=== PATIENT | female | born 1945 | race Caucasian/White ===

== ENCOUNTER → 2020-07-05 15:10 | Outpatient (CLI) | payer MEDICARE, SELFPAY ==
--- NOTE | ~2020-07-05 | MR_ITS ---
EXAMINATION: MR lumbar spine wo con DATE: 07/05/2020 16:07 INDICATION: Low back pain. Right leg pain. TECHNIQUE: Magnetic resonance imaging (MRI) of the lumbar spine was performed without intravenous con trast. Sequences included sagittal T2-weighted FSE, sagittal T2-weighted FS FSE, sagittal T1-weighted FSE, and axial T2-weighted FSE. COMPARISON: None FINDINGS: There is 10 degrees dextroscoliosis of lumbar spine. Vertebral body heights are normal. The re is mildly decreased disc height from L2-L3 through L4-L5 and severely decreased disc height at L5- S1. The distal spinal cord signal intensity is normal. The conus medullaris is at L1. There is a 17 m m cyst in right kidney. The following disc levels are specifically discussed: L1-L2: The disc is bulging. There is mild bilateral facet joint osteoarthritis. There is no neural fo raminal stenosis. There is mild central canal stenosis. L2-L3: The disc is bulging and has an annular fissure. There is moderate bilateral facet joint osteoa rthritis. There is mild bilateral neural foraminal stenosis. There is mild central canal stenosis. L3-L4: The disc is bulging with superimposed left central extrusion. There is severe right and modera te left facet joint osteoarthritis. There is mild bilateral neural foraminal stenosis. There is mild central canal stenosis. L4-L5: The disc is bulging and has an annular fissure. There is moderate bilateral facet joint osteoa rthritis. There is moderate right and mild left neural foraminal stenosis. There is mild central xiomara l stenosis. L5-S1: The disc is bulging and has an annular fissure. There is moderate bilateral facet joint osteoa rthritis. There is mild bilateral neural foraminal stenosis. There is mild central canal stenosis. IMPRESSION: 1. Severe lumbar spondylosis. 2. Lumbar dextroscoliosis. Reviewed, dictated and finalized at location A.
== END ==
PROVIDERS: PCP Internal Medicine; Visit Provider Internal Medicine
DX: M47.896 Other spondylosis, lumbar region (principal)
CPT/HCPCS: 72148

== ENCOUNTER 2020-07-26 09:52 | Outpatient (CLI) | payer MEDICARE, SELFPAY ==
--- NOTE | 2020-07-26 09:56 | ECG_ITS ---
Measurements Intervals [place] Rate: 69 P: 57 KS: 158 QRS: 17 QRSD: 94 T: 80 QT: 395 QTc: 424 Interpretive Statements SINUS RHYTHM VOLTAGE CRITERIA FOR LVH CANNOT RULE OUT SEPTAL INFARCT, AGE INDETERMINATE BASELINE ARTIFACT- I, III, AVR, AVL, AVF ABNORMAL ECG Electronically Signed On 07-26-2020 10:42:34 CDT by Gregorio King D.O.
[2020-07-26 10:28] LABS: Basophils Absolute Auto 0.1 K/mm3 (0.0-0.1); Basophils Percent Auto 0.6 % (0.2-1.2); Eosinophils Absolute Auto 0.1 K/mm3 (0-0.3); Eosinophils Percent Auto 1.7 % (0-4.4); Hematocrit 42.6 % (37.0-47.0); Hemoglobin 14.3 g/dL (12.0-15.0); Immature Granulocyte Absolute 0.03 K/mm3 (0.00-0.031); Immature Granulocyte Percent A 0.4 % (0-0.5); Lymphocytes Absolute Auto 1.69 K/mm3 (0.9-3.2); Lymphocytes Percent Auto 20.7 % (18.3-44.2); Mean Corpuscular HGB Conc 33.6 g/dl (32-36); Mean Corpuscular Hemoglobin 30.9 pg (26-34); Monocytes Absolute Auto 0.6 K/mm3 (0.1-0.6); Monocytes Percent Auto 7.1 % (2.6-8.5); Neutrophils Absolute Auto 5.7 K/mm3 (1.3-6.7); Neutrophils Percent Auto 69.5 % (45.5-73.1); Platelet Count Result 260 k/mm3 (150-375); Red Blood Count 4.63 M/mm3 (4.2-5.4); White Blood Count 8.2 K/mm3 (4.5-10.0)
[2020-07-26 10:39] LABS: Prothrombin Time 12.5 Seconds (11.1-14.7)
[2020-07-26 10:40] LABS: Partial Thromboplastin Time 30.8 SECONDS (22.3-36.8)
[2020-07-26 10:45] LABS: Alanine Aminotransferase 13 U/L (4-35); Albumin Level 4.4 g/dL (3.5-5.1); Alkaline Phosphatase 88 U/L (38-126); Anion Gap 11 mmol/L (8-16); Aspartate Amino Transferase 22 U/L (14-36); Bilirubin,Total 0.4 mg/dL (0.2-1.3); Blood Urea Nitrogen 19 mg/dL (7-17); Calcium 9.4 mg/dL (8.4-10.2); Carbon Dioxide 22 mmol/L (22-30); Chloride 107 mmol/L (98-107); Estimated Glomerular Filt Rate > 60; Glucose 103 mg/dL (65-105); Potassium 4.7 mmol/L (3.4-5.0); Sodium 140 mmol/L (137-145)
== END 2020-07-26 09:53 | disposition home or self-care (01) ==
LOC: ANHSURGERY 09:56
PROVIDERS: PCP Internal Medicine; Visit Provider Urology
DX: Z01.818 Encounter for other preprocedural examination (principal); N99.3 Prolapse of vaginal vault after hysterectomy; I10 Essential (primary) hypertension; R94.31 Abnormal electrocardiogram [ECG] [EKG]
CPT/HCPCS: 36415; 80053; 85025; 85610; 85730; 86850; 86900; 86901; 87086; 87088; 93005

== ENCOUNTER 2020-07-29 02:33 | Outpatient (CLI) | payer MEDICARE, SELFPAY ==
[2020-07-29 23:12] LABS: SARS-CoV-2 RNA PCR Negative
== END 2020-07-29 02:34 | disposition home or self-care (01) ==
LOC: ANHCOVIDDT 02:33
PROVIDERS: PCP Internal Medicine; Visit Provider Urology
DX: Z01.812 Encounter for preprocedural laboratory examination (principal); Z20.828 Contact with and (suspected) exposure to other viral communicable diseases
CPT/HCPCS: 87635; C9803; U0003

== ENCOUNTER 2020-08-01 00:47 | Day surgery (SDC) | payer MEDICARE, SELFPAY ==
--- NOTE | 2020-07-23 14:14 | PM.IMHP ---
H&P: HPI History of Present Illness Date/Time: 07/23/20 14:14 Chief complaint: vaginal vault prolapse Narrative: Navya Caputo is a 74 year old female up with vaginal wall prolapse without stress incontinence Review of Systems Review of Systems: All systems reviewed & are unremarkable except as noted in HPI and below Meds Home Medications and Allergies Allergies Allergy/AdvReac Type Severity Reaction Status Date / Time No Known Allergies Allergy Unverified 05/27/17 09:25 Exam Const: General: no acute distress HENMT: Mouth: Yes moist mucous membranes Eyes: EOM: EOMs intact bilaterally Neck: Neck: no JVD Resp: Effort & Inspection: normal respiratory effort GI: GI Palp: Yes Soft to palpation : Other: apex at +4 Skin: General skin exam: no rashes or lesions noted Neuro: Speech: normal speech Extrem: General: normal to inspection Psych: Mental Status: mental status grossly normal Assessment and Plan Assessment and plan (1) Prolapse of vaginal vault after hysterectomy: Code(s): N99.3 - Prolapse of vaginal vault after hysterectomy Status: Acute Assessment and Plan: colpocleisis
[2020-07-25 09:37] VITALS: BMI 23.7
--- NOTE | 2020-08-01 10:01 | WPDHPUPDATE1 ---
History and Physical Update Update Date/Time: 08/01/20 10:01 History and Physical has been reviewed, including an updated exam of the patient. There are NO changes in the patient's condition. Risks, benefits, and alternatives have been discussed and questions answered. Patient agrees to proceed with procedure.
[2020-08-01 10:09] VITALS: BP 149/89; PULSE 82; RESP 18; TEMP 36.7; O2SAT 95
[2020-08-01] MEDS: LACTATED RINGERS 1,000 ML 30 ML IV CONT (10:30)
--- NOTE | 2020-08-01 10:54 | WPDANESEPP ---
Anes - Eval Pre Procedure Procedure: Operation Date: 08/01/20 12:00 Proposed Procedures p Colpocleisis - Lito Orona MD s Possible Urethral Sling - Lito Orona MD Date/Time: 08/01/20 10:54 Pre Op Diagnosis: vaginal vault prolapse Patient Data Age: 75 Gender: F Height: 1.68 m Weight: 66.7 kg Allergies Allergy/AdvReac Type Severity Reaction Status Date / Time No Known Allergies Allergy Unverified 07/25/20 09:28 Home Medications Medication Instructions Recorded Confirmed Type amlodipine 5 mg PO QAM 07/25/20 07/25/20 History lorazepam 0.5 mg PO PRN PRN 07/25/20 07/25/20 History magnesium 400 mg PO DAILY 07/25/20 07/25/20 History montelukast 10 mg PO QAM 07/25/20 07/25/20 History pantoprazole 40 mg PO QAM 07/25/20 07/25/20 History Patient hx anesthesia problems: none Family hx anesthesia problems: none [facility] Past Medical History Medical History (Updated 08/01/20 @ 10:54 by Jada Cool CRNA) Anxiety Asthma GERD (gastroesophageal reflux disease) HTN (hypertension) Social History Social History Years smoked: 20 Smoking status: Former smoker Tobacco type: cigarettes Smoking end date: 10/21/69 Alcohol intake: current Drinks per week: 1 Living arrangements: alone Spiritual care concerns: No Exam Day of Procedure 08/01/20 10:54
--- NOTE | 2020-08-01 11:19 | WPDANESEPPF ---
Anes - Initial Pre Proc Eval Procedure: Operation Date: 08/01/20 12:00 Proposed Procedures p Colpocleisis - Lito Orona MD s Possible Urethral Sling - Lito Orona MD Date/Time: 08/01/20 11:19 Surgeon: Lito Orona MD Pre Op Diagnosis: vaginal vault prolapse Patient Data Age: 75 Gender: F Height: 5 ft 6 in Weight: 66.7 kg Allergies Allergy/AdvReac Type Severity Reaction Status Date / Time No Known Allergies Allergy Unverified 07/25/20 09:28 Home Medications Medication Instructions Recorded Confirmed Type amlodipine 5 mg PO QAM 07/25/20 07/25/20 History lorazepam 0.5 mg PO PRN PRN 07/25/20 07/25/20 History magnesium 400 mg PO DAILY 07/25/20 07/25/20 History montelukast 10 mg PO QAM 07/25/20 07/25/20 History pantoprazole 40 mg PO QAM 07/25/20 07/25/20 History Patient hx anesthesia problems: none Family hx anesthesia problems: none [facility] Past Medical History Medical History Anxiety Asthma GERD (gastroesophageal reflux disease) Hepatitis C HTN (hypertension) Social History Social History Years smoked: 20 Smoking status: Former smoker Tobacco type: cigarettes Smoking end date: 10/21/69 Alcohol intake: current Drinks per week: 1 Living arrangements: alone Spiritual care concerns: No Anes - Eval Final PreProcedure Day of Procedure 08/01/20 11:19 Patient weight: normal Heart: regular rate and rhythm Lungs: clear to auscultation Airway: Mallampati scale class II Neurological: alert and oriented Last oral intake: >/= 8 hours ASA classification: III Emergent: no Anesthetic plan: proceed Anesthesia type and monitoring: general LMA and standard monitoring Informed Consent: The patient's anesthetic plan and its attendant risks and benefits were discussed with the patient/family/POA. Questions were solicited and answers provided to the satisfaction of the patient/family/POA.
[2020-08-01] MEDS: ceFAZolin 2 GM/D5W 50 ML 2 GM/50 ML BAG IVPB (12:25)
[2020-08-01] MEDS: BUPIVACAINE/EPINEPHRINE 0.25% 50 ML VIAL INFILTRATE (12:51)
--- NOTE | 2020-08-01 13:19 | PM.PROC ---
Procedure Note - Detailed Date of procedure: 08/01/20 Pre-op diagnosis: vaginal vault prolapse Female perineal laxity Post-op diagnosis: same Procedure performed: Classic colpocleisis Perineoplasty Description of procedure: She was correctly identified informed consent is obtained. She from the operating room. She was given general anesthesia. She was placed in dorsal lithotomy position. She was prepped and draped in a sterile fashion. Time-out performed. She is given appropriate perioperative antibiotics. I placed start tractor. I placed Warren catheter. I grasped the apex of the vagina. She had post hysterectomy vaginal vault prolapse. I anesthetized posterior vaginal wall. I removed the skin of the posterior vaginal wall. I then did the same on the anterior vaginal wall. I then performed a classic colpocleisis. Of note the tissue was very thin and there was a paucity of tissue to perform the colpocleisis. I did not enter the peritoneum. I did pursestring sutures of 0 Vicryl. I then used 0 Vicryl to close mucosa to mucosa in a horizontal mattress fashion. I then marked out a herlinda-shaped area of skin in the perineum anesthetize this area of skin removed it. I then performed a perineorrhaphy. I used 0 Vicryl suture. I then used a 2 Vicryl to close the mucosa. On cystoscopy showed moderate trabeculations. There is no surgical artifact or tumors. There is no abnormal red patches. Both ureters were seen to excrete urine. I left the Warren catheter out. She is awakened and transferred to PACU in stable condition. Anesthesia: GLMA Surgeon: Lito Orona MD Estimated blood loss (mL): 10 Drains: No Packing: No Pathology: none sent Complications: No immediate complications Condition: stable Disposition: PACU
[2020-08-01 13:20] VITALS: BP 134/79; PULSE 81; RESP 13; TEMP 36.5; O2SAT 96
[2020-08-01 13:35] VITALS: BP 143/75; PULSE 71; RESP 12; O2SAT 98
[2020-08-01] MEDS: ONDANSETRON INJ 4 MG/2 ML VIAL IV PUSH (13:37)
[2020-08-01 13:50] VITALS: BP 134/77; PULSE 77; RESP 18; O2SAT 95
[2020-08-01 13:57] VITALS: BP 147/74; PULSE 77; RESP 14
[2020-08-01 14:30] VITALS: BP 154/91; PULSE 86; RESP 14
== END 2020-08-01 14:55 | disposition home or self-care (01) ==
PROVIDERS: PCP Internal Medicine; Visit Provider Urology
PROC: (CPT 57120; principal; 2020-08-01 12:00)
DX: N99.3 Prolapse of vaginal vault after hysterectomy (principal); I10 Essential (primary) hypertension; J45.909 Unspecified asthma, uncomplicated; K21.9 Gastro-esophageal reflux disease without esophagitis; F41.9 Anxiety disorder, unspecified; Z87.891 Personal history of nicotine dependence
CPT/HCPCS: 57120; 36415; 80053; 85025; 85610; 85730; 86850; 86900; 86901; 87086; 87088; 87635; 93005; A9270; C9803; J0690; J1100; J2405; J2704; J3010; J7030; J7120; U0003

== ENCOUNTER → 2020-11-14 13:13 | Outpatient (CLI) | payer MEDICARE, SELFPAY ==
--- NOTE | ~2020-11-14 | XR_ITS ---
EXAMINATION: XR thoracic spine 3V DATE: 11/14/2020 13:25 INDICATION: Thoracic spine pain. TECHNIQUE: One AP, lateral and lateral swimmer's views of the thoracic spine were obtained. COMPARISON: None. FINDINGS: Lower thoracic levoscoliosis measuring 16 degrees between T9 and T12. Vertebral body heights are norm al. Moderate left-sided disc height loss at T8-T9. Mild disc height loss at many of the remaining lev els in the mid lumbar spine. Calcified nodule projecting over the posterior mid lung zones consistent with old granulomatous disease. The visualized portions of the lungs are otherwise clear with no pne umothorax or pleural effusion. Cardiomediastinal silhouette is normal. IMPRESSION: 1. Mild lower thoracic levoscoliosis with generally mild spondylosis. Reviewed, dictated and finalized at location B. EL ENGINE PIPE FITTER
== END ==
PROVIDERS: PCP Internal Medicine; Visit Provider Internal Medicine
DX: M15.0 Primary generalized (osteo)arthritis (principal); M47.814 Spondylosis without myelopathy or radiculopathy, thoracic region; M41.84 Other forms of scoliosis, thoracic region
CPT/HCPCS: 72072

== ENCOUNTER 2021-07-06 09:51 | Outpatient (CLI) | payer MEDICARE, SELFPAY ==
--- NOTE | ~2021-07-06 | CT_ITS ---
EXAMINATION: CT abdomen pelvis wo con DATE: 07/06/2021 10:23 INDICATION: Ovarian mass TECHNIQUE: Computed tomography (CT) of the abdomen and pelvis was performed without intravenous contr ast. Automated exposure control and iterative reconstruction technique were employed. Exam dose: 380 .19 mGy-cm total exam DLP. COMPARISON: None. FINDINGS: There are multiple scattered areas of discoid atelectasis and/or scarring at the lung bases . Heart size is within normal range. No pericardial or pleural effusion. Small sliding hiatal hernia. Status post cholecystectomy. No hepatic, splenic, pancreatic, adrenal or renal space-occupying mass l esion is detected. No bile duct or pancreatic duct dilatation. No urinary tract calculus or hydroureteronephrosis. There is atherosclerotic calcification of the abdominal aorta but no aneurysm. No intraperitoneal or retroperitoneal or pelvic mass lesion or adenopathy or ascites is detected. The appendix is not identified. There is mild left and right colon diverticulosis without evidence of diverticulitis. No bowel obstruction, bowel wall thickening, pneumatosis or intraperitoneal free air is detected. Status post hysterectomy. The urinary bladder is unremarkable. Diffuse osteopenia. Moderately severe degenerative disc disease at L2-3, severe degenerative disc disease and minimal ret rolisthesis at L5-S1. Prominent bilateral hip osteoarthritis. IMPRESSION: Status post cholecystectomy Small sliding hiatal hernia Mild colonic diverticulosis; no evidence of diverticulitis Status post hysterectomy Reviewed, dictated and finalized at Location A. Reviewed, dictated and finalized at location A.
== END 2021-07-06 09:52 | disposition home or self-care (01) ==
PROVIDERS: PCP Internal Medicine; Visit Provider Internal Medicine
DX: Z90.49 Acquired absence of other specified parts of digestive tract (principal); K44.9 Diaphragmatic hernia without obstruction or gangrene; K57.30 Diverticulosis of large intestine without perforation or abscess without bleeding; Z90.710 Acquired absence of both cervix and uterus
CPT/HCPCS: 74176

== ENCOUNTER 2021-08-21 02:12 | Day surgery (SDC) | payer MEDICARE, SELFPAY ==
[2021-08-16 11:40] VITALS: BMI 23.1
[2021-08-21 09:29] VITALS: BP 128/90; PULSE 82; RESP 20; TEMP 35.8; O2SAT 97; BMI 22.6
[2021-08-21] MEDS: LACTATED RINGERS 1,000 ML 150 ML IV CONT (09:33)
--- NOTE | 2021-08-21 09:47 | P.PNAN_ITS ---
Anes - Initial Pre Proc Eval Procedure: Operation Date: 08/21/21 10:30 Proposed Procedures p Colonoscopy - Ronald Yang MD Date/Time: 08/21/21 09:47 Surgeon: Ronald Yang MD Pre Op Diagnosis: colitis Patient Data Age: 76 Gender: F Height: 1.7 m Weight: 65.7 kg Last Vital Signs Temp 35.8 C L 08/21/21 09:29 Pulse 82 08/21/21 09:29 Resp 20 08/21/21 09:29 BP 128/90 08/21/21 09:29 Pulse Ox 97 08/21/21 09:29 Allergies Allergy/AdvReac Type Severity Reaction Status Date / Time No Known Allergies Allergy Verified 08/21/21 09:28 Home Medications Medication Instructions Recorded Confirmed Type amlodipine 5 mg PO QAM 07/25/20 08/21/21 History lorazepam 0.5 mg PO PRN PRN 07/25/20 08/21/21 History montelukast 10 mg PO QAM 07/25/20 08/21/21 History pantoprazole 40 mg PO 3XW 07/25/20 08/21/21 History ascorbic acid (vitamin C) [Vitamin 1 g PO DAILY 08/16/21 08/21/21 History C] biotin 1,000 mcg PO DAILY 08/16/21 08/21/21 History cholecalciferol (vitamin D3) 1,250 mcg PO WEEKLY 08/16/21 08/21/21 History magnesium 500 mg PO DAILY 08/16/21 08/21/21 History omega-3 fatty acids-fish oil [Fish 1 cap PO DAILY 08/16/21 08/21/21 History Oil] vitamin B complex [B 1 tablet PO DAILY 08/16/21 08/21/21 History Complex-Vitamin B12] Patient hx anesthesia problems: none Family hx anesthesia problems: none Results Review: All pre-operative results and documents have been reviewed as part of the pre-operative evaluation. [facility] Past Medical History Medical History Anxiety Asthma GERD (gastroesophageal reflux disease) Hepatitis C HTN (hypertension) Social History Social History Years smoked: 25 Smoking status: Former smoker Tobacco type: cigarettes Smoking end date: 10/21/75 Alcohol intake: current Drinks per week: 2 Living arrangements: alone Spiritual care concerns: No Anes - Eval Final PreProcedure Day of Procedure 08/21/21 09:47 Patient weight: normal Heart: regular rate and rhythm Lungs: clear to auscultation Airway: Mallampati scale class II Neurological: alert and oriented Last oral intake: >/= 8 hours ASA classification: II Emergent: no Anesthetic plan: proceed Anesthesia type and monitoring: general GIVS and standard monitoring Results Review: All pre-operative results and documents have been reviewed as part of the pre-operative evaluation. Informed Consent: The patient's anesthetic plan and its attendant risks and benefits were discussed with the patient/family/POA. Questions were solicited and answers provided to the satisfaction of the patient/family/POA.
--- NOTE | 2021-08-21 10:04 | PM.HPGS ---
History of Present Illness History of Present Illness Consent: Risks, benefits, and alternatives have been discussed and questions answered. Patient agrees to proceed with procedure. Chief complaint: colitis Narrative: Navya Caputo is a 76 year old female With history of polyps she also has had a change in bowel habits Review of Systems Review of Systems: All systems reviewed & are unremarkable except as noted in HPI and below PMFSH Past Medical History Medical History Anxiety Asthma GERD (gastroesophageal reflux disease) Hepatitis C HTN (hypertension) Social History Social History Years smoked: 25 Smoking status: Former smoker Tobacco type: cigarettes Smoking end date: 10/21/75 Alcohol intake: current Drinks per week: 2 Living arrangements: alone Spiritual care concerns: No Meds Home Medications and Allergies Home Medications Medication Instructions Recorded Confirmed Type amlodipine 5 mg PO QAM 07/25/20 08/21/21 History lorazepam 0.5 mg PO PRN PRN 07/25/20 08/21/21 History montelukast 10 mg PO QAM 07/25/20 08/21/21 History pantoprazole 40 mg PO 3XW 07/25/20 08/21/21 History ascorbic acid (vitamin C) [Vitamin 1 g PO DAILY 08/16/21 08/21/21 History C] biotin 1,000 mcg PO DAILY 08/16/21 08/21/21 History cholecalciferol (vitamin D3) 1,250 mcg PO WEEKLY 08/16/21 08/21/21 History magnesium 500 mg PO DAILY 08/16/21 08/21/21 History omega-3 fatty acids-fish oil [Fish 1 cap PO DAILY 08/16/21 08/21/21 History Oil] vitamin B complex [B 1 tablet PO DAILY 08/16/21 08/21/21 History Complex-Vitamin B12] Allergies Allergy/AdvReac Type Severity Reaction Status Date / Time No Known Allergies Allergy Verified 08/21/21 09:28 Vital Signs Vital Signs - 24 hr 08/21/21 09:29 Temperature 35.8 C L Pulse Rate 82 Respiratory Rate 20 Blood Pressure 128/90 Pulse Oximetry 97 Exam Resp: Auscultation: clear to auscultation bilaterally Cardio: Rate: regular rate Rhythm: regular rhythm GI: GI Palp: Yes Soft to palpation and No Tenderness to palpation present (GI) Assessment and Plan Assessment and plan (1) Change in bowel habits: Code(s): R19.4 - Change in bowel habit Status: Acute Assessment and Plan: Colonoscopy with possible biopsy or polypectomy or cautery or injection of substances.
[2021-08-21 10:35] VITALS: BP 90/59; PULSE 66; O2SAT 94
[2021-08-21 10:45] VITALS: BP 95/65; PULSE 71; O2SAT 95
[2021-08-21 10:55] VITALS: BP 117/75; PULSE 72; O2SAT 96
== END 2021-08-21 11:06 | disposition home or self-care (01) ==
PROVIDERS: PCP Internal Medicine; Visit Provider Internal Medicine Gastroenterology
PROC: 0DJD8ZZ Inspection of Lower Intestinal Tract, Via Natural or Artificial Opening Endoscopic (ICD-10-PCS; CPT 45378; principal; 2021-08-21 10:30)
DX: R19.4 Change in bowel habit (principal); Z86.010 Personal history of colon polyps; K57.30 Diverticulosis of large intestine without perforation or abscess without bleeding; K64.8 Other hemorrhoids; K52.9 Noninfective gastroenteritis and colitis, unspecified; F41.9 Anxiety disorder, unspecified; J45.909 Unspecified asthma, uncomplicated; K21.9 Gastro-esophageal reflux disease without esophagitis; B19.20 Unspecified viral hepatitis C without hepatic coma; I10 Essential (primary) hypertension; Z87.891 Personal history of nicotine dependence
CPT/HCPCS: 45378; J2704; J7120

== ENCOUNTER 2025-03-22 10:19 | Outpatient (CLI) | payer MEDICARE, SELFPAY ==
--- OUTSIDE RECORDS SUMMARY | 2025-03-22 10:59 | XMS_ITS | Encounter Summary ---
Author Organization [employer] Address [address] [place] [address] Care Team Providers Care Staff Anesthesiologist Name Role Phone Rob Ley MD Primary Care Provider [phone] Encounter Details Date Type Department Care Team (Late st Contact Info) Description 03/29/2000 Outpatient Historical [facility] STDarryl Webb MD 5 [facility] [place] [address] Er, Authorized P NO ADDRESS ON FILE Other complications due to genitourinary device, implant, and graft (Primary Dx) Social History Tobacco Use Types Packs/Day Years Used Date Smoking Tobacco: Never Assessed Comments Unknown Sex and Gender Information Value Date Recorded Sex Assigned at Not on file 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
--- OUTSIDE RECORDS SUMMARY | 2025-03-22 10:59 | XMS_ITS | Encounter Summary ---
Author Organization [employer] Address 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
--- OUTSIDE RECORDS SUMMARY | 2025-03-22 10:59 | XMS_ITS | Clinical Summary ---
Author Organization [facility] Address [address] [place] [address] Phone Care Team Providers Care Field Artillery Operations Specialist Name Role Phone Haroldo Barajas MD Primary Care Provider [phone] Eduard Vasquez MD Unavailable [phone] Allergies No known active allergies Medications Fluticasone-Ion meterol (Advair HFA) 115-21 MCG/ACT Aerosol take 2 Puffs by inhalation every 12 hours. Active Albuterol Sulfate 108 (90 Base) MCG/ACT AEROSOL POWDER, BREATH ACTIVATED take by inhalation. Active amLODIPine (NORVASC) 5 MG Tablet Take 5 mg by mouth daily. Active montelukast (SINGULAIR) 10 MG Tablet Take 10 mg by mouth every evening. Active donepezil (ARICEPT) 10 MG Tablet Take 1 Tablet by mouth nightly. 90 Tablet 1 4 Active Family History Medical History Relation Name Comments Heart Attack Brother Cancer Father Relation Name Status Comments Brother Father Mother Social History Tobacco Use Types Packs/Day Years Used Date Smoking Tobacco: Former Cigarettes Smokeless Tobacco: Never Tobacco Cessation:Counseling Given: Not Answered Alcohol Use Standard Drinks/Week Comments Yes 0 (1 standard drink = 0.6 oz pur e alcohol) occasional Comments Unknown Sex and Gender Information Value Date Recorded Sex Assigned at Female 12/02/2023 3:47 PM JUICE WEIGHER Legal Sex Female 7:14 PM CDT Gender Identity Female 12/02/2023 3:47 PM JUICE WEIGHER Sexual Orientation Not on file Last Filed Vital Signs Vital Sign Reading Time Taken Comments Blood Pressure 140/90 08/03/2024 2:09 PM CDT Pulse 79 08/03/2024 2:09 PM CDT Temperature 36.1 C (97 F) 08/03/2024 2:09 PM CDT Respiratory Rate 17 08/03/2024 2:09 PM CDT Oxygen Saturation 96% 08/03/2024 2:09 PM CDT Inhaled Oxygen Concentration - - Weight 74.5 kg (164 lb 3.2 oz) 08/03/2024 2:09 P M CDT Height 170.2 cm (5' 7) 08/03/2024 2:09 PM CDT Body Mass Index 25.72 08/03/2024 2:09 PM CDT Plan of Treatment Health Maintenance Due Date Last Done Comments DEXA Bone Density 1945 Hepatitis C Virus (HCV) Screening 1945 TdaP Immunization 1945 Zoster Immunization (1 of 2) 1993 SARS-COV-2 Immunization ( season) 2024 08/08/2023, 07/26/2022, 05/29/2022, Additional history exists Influenza Immunization (Season Ended) 2025 08/08/2023, 07/26/2022 Pneumococcal Immunization (50+ years) Completed 08/22/2023 Respiratory Syncytial Virus (RSV) Immunization (Adult) Completed 08/22/2023 Hepatitis B Immunization Aged Out No longer eligible based on patient's age to complete this topic Human Papillomavirus (HPV) Immunization Aged Out No longer eligible based on patient's age to complete this topic Meningococcal Immunization (ACWY) Aged Out No longer eligible based on patient's age to complete this topic Rotavirus Immunization Aged Out No lo nger eligible based on patient's age to complete this topic Goals Goal Patient Goal Type Associated Problems Recent Progress Patient-Stated? Author Psychological assessment Behavioral Health No change(11/05 11:49 AM JUICE WEIGHER) No [place] PSYD Note: Patient will participate fully in a psychological assessment to determine the presence of cognitive decline, within the next 60 days. 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
--- OUTSIDE RECORDS SUMMARY | 2025-03-22 10:59 | XMS_ITS | Clinical Summary ---
Author Organization [facility] Address [address] [place] [address] Phone Care Team Providers Care Signal Circuit Designer Name Role Phone Rob Ley MD Primary Care Provider [phone] Allergies No known active allergies Medications montelukast (SINGULAIR) 10 mg tablet 04/29/2015 Active lisinopril-hydroch lorothiazide (ZESTORETIC) 10-12.5 mg tablet 03/08/2015 A ctive Active Problems No known active problems Family History Medical History Relation Name Comments Heart Disease Brother Relation Name Status Comments Brother Alive Daughter 1 Alive Daughter 2 Alive Father Maternal Grandfather Maternal Grandmother Mother Paternal Grandfather Paternal Grandmother Social History Tobacco Use Types Packs/Day Years Used Date Smoking Tobacco: Former Smokeless Tobacco: Never Alcohol Use Standard Drinks/Week Comments Yes 0 (1 standard drink = 0.6 oz pur e alcohol) Comments No Sex and Gender Information Value Date Recorded Sex Assigned at Not on file Legal Sex 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 Gender Identity Not on file Sexual Orientation Not on file Last Filed Vital Signs Vital Sign Reading Time Taken Comments Blood Pressure 129/82 06/02/2015 1:18 PM CDT Pulse 76 06/02/2015 1:18 PM CDT Temperature - - Respiratory Rate - - Oxygen Saturation - - Inhaled Oxygen Concentration - - Weight 68 kg (150 lb) 06/02/2015 1:18 PM CDT Height 168.9 cm (5' 6.5) 06/02/2015 1:18 PM CDT Body Mass Index 23.85 06/02/2015 1:18 PM CDT Plan of Treatment Health Maintenance Due Date Last Done Comments DTAP/TDAP/TD VACCINES (1 - Tdap) 1962 PNEUMOCOCCAL VACCINE 50+ YEARS (1 of 1 - PCV) 07/30/19 93 ZOSTER VACCINE (1 of 2) 1993 OSTEOPOROSIS SCREENING 2008 RSV VACCINE (60+ or ) (1 - 1-dose 75+ series) 2018 INFLUENZA VACCINE (#1) 2024 Insurance MEDICARE PART A AND B [facility] BLUE ACCESS/TRUE BLUE PPO Care Teams Signal Circuit Designer Relationship Specialty Start Date End Date Rob Ley MD [address] [place] [address] PCP - General Interventional Cardiology 06/02/15
--- OUTSIDE RECORDS SUMMARY | 2025-03-22 10:59 | XMS_ITS | Continuity of Care Document ---
Author Organization [facility] Address [address] [place] [address] [place] [address] Phone Care Team Providers Care Weighmaster Name Role Phone Emanuel OD, Hira Unavailable Unavailable Procedures Procedure Date Office/outpatient Visit, Est Eye Exam Established Pt Office/outpatient Visit, Est Eye Exam & Treatment No Script Miscellaneous Vision Service - Supplies Tax - Medical Refraction Office/outpatient Visit, Est Miscellaneous Vision Service - Supplies Sales Tax Advance Directives Directive Yes / No Effective Date File Name No Information Encounters Encounter Description Practice Location Reason(s) For Visit Diagnoses Date Provider Providers Copied on Encounter Office/outpat ient Visit, Est [facility], [address] [place] [address] [address], [place], [place], [id number], tel:[phone] [facility] [place] No Information 0-201 0 Emanuel OD Hira. [address] , [address], [place], [address], [place]. tel:[phone] [facility], [address] [place] [address] [address], [place], [place], [id number], [place] tel:[phone] [facility] [place] No Information 3-201 0 Emanuel OD Hira. [address], [address], [place], [address], [place]. tel:[phone] Office/outpat ient Visit, Est [facility], [address] [place] [address] [address], [place], [place], [id number], [place] tel:[phone] [facility] [place] No Information 201 0 Doijoão Edcarla. [address] , [address], [place], [address], [place]. tel:[phone] [facility], [address] [place] [address] [address], [place], [place], [id number], [place] tel:[phone] [facility] [place] No Information 9 Glenys Edcarla. [address] , [address], [place], [address], [place]. tel:[phone] [facility], [address] [place] [address] [address], [place], [place], [id number], [place] tel:[phone] SEC [facility] No Information 8 [facility] . [address], [address], [place], [place], [id number], [place]. tel:[phone] Consulting Provider: Tri Michel, [address] [place], [place], [facility]. tel:[phone] [facility], [address] [place] [address] [address], [place], [place], [address], [place] tel:[phone] [facility] [place] No Information 8 Doisy Edcarla. [address] , [address], [place], [address], [place]. tel:[phone] Office/outpat ient Visit, Est [facility], [address] [place] [address] [address], [place], [place], [address], [place] tel:[phone] [facility] No Information 2200 8 Glenys Edcarla. [address] , [address], [place], [address], [place]. tel:[phone] [facility], [address], [place], [place], [address], [place] tel:[phone] [facility] No Information May-0 7-200 7 [facility] . [address], [address], [place], [place], [address], [place]. tel:[phone] Consulting Provider: Edgard Lambert, [address], [place], [address]. tel:[phone] Family History Family Member Type Diagnosis Age At Onset No Information Payers Payer name Insurance type Covered libertarian ID Authoriza tisam(s) Medicare [facility] [id number] [employer] [place] [id number] Social History Type Description Quantity Date Captured Comments Sex Female Smoking Status No Information Chief Complaint And Reason For Visit No Information Reason For Referral Reason For Referral No Information History Of Present Illness Encounter Date Complaint History Of Prese nt Illness No Information Functional Status Date Functional Assessmen t No Information Instructions Date Instruction Additional Infor mation No Information Assessments Type Assessment Date No Information Patient Care Teams Name Effective Dates (start - stop) Status Members No Information
--- OUTSIDE RECORDS SUMMARY | 2025-03-22 10:59 | XMS_ITS | Clinical Summary ---
Author Organization [facility] Address [address] [place] [address] [place] [address] Care Team Providers Care Housefellow Name Role Phone Rob Ley MD Primary Care Provider Cuca montgomery Source Comments [facility],non-owned Affiliates and Associated Physician Practices is amultiple site organization consisting of ambulatory clinics and hospital sitesin [place], [place], [place] and [place]. This disclosure is being madepursuant to the Care Everywhere program and may not contain all information available regarding this patient. Last updated 18.[facility] [employer] Medications * Be aware that medications may not be up to date on this document. Alwaysverify current medications with the patient. diphenhydrAMINE (BENADRYL) 25 MG tablet Take 25 mg by mouth q6h PRN (Insomnia). 08/30/2017 Active Cvoyj-Ipapygc-T aritapre-Ritona (VIEKIRA XR) 200-8.33-50- 33.33 MG TB24 Take 3 tablets by mouth DAILY. 84 tablet 2 02/14/2017 Active lisinopril (PRINIVIL; ZESTRIL) 10 MG tablet Take 10 mg by mouth DAILY. 12/10/2016 Active montelukast (SINGULAIR) 10 MG tablet Take 10 mg by mouth DAILY. 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 pylo ri) as the cause of diseases classified elsewhere 12/10/2016 Social History Tobacco Use Types Packs/Day Years Used Date Smoking Tobacco: Never Smokeless Tobacco: Never Alcohol Use Standard Drinks/Week Comments No 0 (1 standard drink = 0.6 oz pur e alcohol) Comments Unknown Sex and Gender Information Value Date Recorded Sex Assigned at Not on file Legal Sex Female 5:19 PM ARTIST'S REPRESENTATIVE Gender Identity Not on file Sexual Orientation Not on file Last Filed Vital Signs Vital Sign Reading Time Taken Comments Blood Pressure 128/79 08/30/2017 11:26 AM ARTIST'S REPRESENTATIVE Pulse 96 08/30/2017 11:26 AM ARTIST'S REPRESENTATIVE Temperature 37 C (98.6 F) 08/30/2017 11:26 AM ARTIST'S REPRESENTATIVE Respiratory Rate 18 08/30/2017 11:26 AM ARTIST'S REPRESENTATIVE Oxygen Saturation 98% 08/30/2017 11:26 AM ARTIST'S REPRESENTATIVE Inhaled Oxygen Concentration - - Weight 69.4 kg (153 lb 1.6 oz) 08/30/2017 11:26 AM ARTIST'S REPRESENTATIVE Height 170.2 cm (5' 7) 08/30/2017 11:26 AM ARTIST'S REPRESENTATIVE Body Mass Index 23.98 08/30/2017 11:26 AM ARTIST'S REPRESENTATIVE Plan of Treatment Health Maintenance Due Date Last Done Comments BONE DENSITY TESTING 1943 DTAP/TDAP/TD VACCINES (1 - Tdap) 1962 PNEUMOCOCCAL VACCINE 50+ (1 of 1 - PCV) 1993 ZOSTER VACCINE (1 of 2) 1993 Respiratory Syncytial Virus (RSV) Vaccine Pt: or over 60 yrs (1 - 1-dose 75+ series) 2018 COVID-19 VACCINE ( - 2023-2 5 season) 2024 DEPRESSION SCREENING 10/21/2024 INFLUENZA VACCINE (Season Ended) 2025 HEPATITIS B VACCINE Aged Out No longe r eligible based on patient's age to complete this topic HIB VACCINE Aged Out No longer eligi ble based on patient's age to complete this topic HPV VACCINE Aged Out No longer eligi ble based on patient's age to complete this topic MENINGOCOCCAL (Group B) VACC INE SHARED DECISION-MAKING Aged Out No longer eligibl e based on patient's age to complete this topic MENINGOCOCCAL GROUPS A/C/Y/W VACCINE Aged Out No longer eligible b ased on patient's age to complete this topic Care Teams Housefellow Relationship Specialty Start Date End Date Rob Ley MD PCP - General 12/10/16
--- NOTE | 2025-03-22 17:18 | WPDPFTINT ---
PFT Procedure Performed PFT Procedure Performed Spirometry with Pre/Post Bronchodilator Plethysmography (Lung Vol) Diffusing Cap (DLCO) Flow Vol Loop PFT Interpretation This is a pulmonary function test with pre and post-bronchodilator spirometry, plethysmography and diffusing capacity. The test was performed and results interpreted in accordance with the 2019 and 2005 ATS/ERS Task Force guidelines respectively using the Global Lung Function Initiative-2012 reference equations. Patient demonstrated good effort and cooperation. Reproducibility criteria were met. The quality of the pre bronchodilator spirometry maneuver was Grade A and post bronchodilator spirometry maneuver was Grade A. Findings: Spirometry: The contour the inspiratory and expiratory flow tracing are normal. The pre bronchodilator FVC is 2.90 L, 104% predicted. The pre bronchodilator FEV1 is 2.10 L, 100% predicted. The pre bronchodilator FEV1: FVC ratio is 72%. The post bronchodilator FVC is 2.72 L, representing a 6% decrease. The post bronchodilator FEV1 is 2.04 L, representing a 3% decrease. The post bronchodilator FEV1: FVC ratio is 75%. Plethysmography: The total lung capacity is 5.14 L, 94% predicted. The functional residual capacity is 2.32 L, 73% predicted. The residual volume is 2.15 L, 84% predicted. Diffusing capacity: The diffusing capacity unadjusted for hemoglobin and carboxyhemoglobin is 14.8, 72% predicted. The diffusing capacity adjusted for alveolar volume is 3.12, 79% predicted. Impression: The spirometry is normal without evidence of an obstructive abnormality. There is no significant improvement after inhaling a single dose of albuterol. The lung volumes are normal. The diffusing capacity is normal. There are no prior studies for comparison
== END 2025-03-22 10:20 | disposition home or self-care (01) ==
PROVIDERS: PCP Internal Medicine; Visit Provider Internal Medicine Pulmonary Disease
DX: J44.9 Chronic obstructive pulmonary disease, unspecified (principal)
CPT/HCPCS: 94060; 94726; 94729